=== PATIENT | male | born 1985 | race African-American/Black ===

== ENCOUNTER 2017-03-28 09:32 | Inpatient (IN) ==
[2017-03-28] MEDS ORDERED: GLUCAGON 1 MG VIAL IM PRN ×2 (11:13→13:28)
[2017-03-28] MEDS ORDERED: DEXTROSE 50% 25 GM/50 ML VIAL IV PRN ×2 (11:13→13:28)
[2017-03-28] MEDS ORDERED: cloNIDine 0.1 MG TABLET PO ONE (12:58)
[2017-03-28] MEDS ORDERED: CARVEDILOL 6.25 MG TABLET PO SCH (13:00)
[2017-03-28] MEDS ORDERED: IRBESARTAN 150 MG TABLET PO ONE (13:15)
[2017-03-28] MEDS ORDERED: LACTULOSE 20 GM/30 ML UDCUP PO PRN (13:19)
[2017-03-28] MEDS ORDERED: ACETAMINOPHEN 325 MG TABLET PO PRN (13:19)
[2017-03-28] MEDS ORDERED: ONDANSETRON 4 MG/2 ML VIAL IV PRN (13:19)
[2017-03-28] MEDS ORDERED: diphenhydrAMINE CAP 25 MG CAPSULE PO PRN (13:19)
[2017-03-28] MEDS ORDERED: PROMETHAZINE 25 MG TABLET PO PRN (13:19)
[2017-03-28] MEDS ORDERED: BISACODYL 5 MG TABLET PO PRN (13:19)
[2017-03-28] MEDS ORDERED: ZALEPLON 5 MG CAPSULE PO PRN (13:19)
[2017-03-28] MEDS ORDERED: DOCUSATE SODIUM 100 MG CAPSULE PO PRN (13:19)
[2017-03-28] MEDS: CARVEDILOL 6.25 MG TABLET PO SCH ×2 (14:22→21:05)
[2017-03-28] MEDS: hydrALAZINE 20 MG/1 ML VIAL IV PRN (14:42)
--- NOTE | 2017-03-28 15:02 | Nephrology History & Physical ---
History of Present Illness Chief complaint: Severe hypertension associated with headache and nausea History of present illness: Mr. Stratton is a 31 year old male who was seen by me during dialysis rounds today in the outpatient setting. The patient at that time complained of headache and nausea. He was noted to have a systolic blood pressure of around 220. Patient states his blood pressures been in the 200s for the past couple of weeks. It is been as high despite increases in his blood pressure pills the past few weeks. He currently is taking amlodipine 10 mg a day and irbesartan 150 mg daily. The patient states he has been having headaches on a regular basis and awoke with one this morning as well. His headache worsened while on dialysis. His blood pressure has remained up despite lowering his dry weight past few months on dialysis. The patient was also recently diagnosed with pancreatitis a few months ago and he states he has been having some occasional abdominal pain with eating. Patient denies any changes in his urinary habits. That is the patient states he has not made any urine in over a year or more since being on dialysis. The patient denies stopping his dialysis treatments prior to their usual scheduled time. Patient denies any chest pain or shortness of breath. He denies noncompliance with his antihypertensive medication. ROS: Head -positive headaches ENT - denies sore throat Lymphatics - denies lymphadenopathy Hematology - denies bleeding problems Heart - denies chest pain Lungs - denies shortness of breath Abdomen -positive abdominal pain Musculoskeletal -positive arthritis Skin - denies rash Neurology - denies stroke General - denies fever PE: General: in no acute distress Eyes: Pupils are round and reactive, conjunctivae are clear ENT: Nose is clear, O/P is benign Neck: Supple, no thyromegaly Lymphatics: No cervical, supraclavicular or axillary adenopathy Heart: Regular rate and rhythm, no edema Lungs: Clear to auscultation anteriorly, chest expansion symmetric Abdomen: Soft, normoactive bowel sounds, no hepatomegaly Musculoskeletal: No joint erythema or effusions or joint asymmetry Skin: Normal turgor, normal hydration, no rash Neuro/Psych: Alert and cooperative with fair insight Home Medications Medication Instructions Recorded Confirmed Type Insulin Glargine,Hum.rec.anlog 25 unit SUBCUT BEDTIME 12/23/16 03/28/17 History [Lisa Benitez] Calcium Acetate [Phoslo] 2,668 mg PO TID W/MEALS 12/24/16 03/28/17 History HYDROcodone/ACETAMIN 5-325 [[place] 1 tablet PO Q4H PRN #30 tablet 12/25/16 Rx 5-325] Irbesartan [Avapro] 75 mg PO DAILY 03/28/17 03/28/17 History Ondansetron Tab [Zofran Tab] 4 mg PO Q6HR PRN 03/28/17 03/28/17 History amLODIPine [Norvasc] 10 mg PO DAILY 03/28/17 03/28/17 History Allergies Allergy/AdvReac Type Severity Reaction Status Date / Time No Known Allergies Allergy Verified 08/01/15 20:44 Medical,Surgical,& Family Hx - Medical History Cardio: History of: Hypertension (started meds 2 weeks ago) Neurology: No history of: Seizures HEENT: History of: Eye Problem (GLASSES) Endocrine: History of: Diabetes Mellitus (IDDM) (LANTUS AT HS) Respiratory: History of: Bronchitis (OCCASSIONALLY ACUTE) Renal: History of: Dialysis (MWF), Renal Failure Gastrointestinal: History of: GERD Musculoskeletal: History of: Musculoskeletal Problems (broken leg as a child) Hematology: History of: Anemia - Surgical History Cardiac Surgeries: Sugical HX of: Vascular Access Devices (left arm fistula) HEENT Surgeries: Surgical HX of: Thyroid Surgery (PARATHYROID 02/04/15) Abdominal Surgeries: Surgical HX of: Abdominal Surgery, Hernia Repair ( A CHILD) Orthopedic Surgeries: Surgical HX of;: Orthopedic Surgery (multiple diabetic toe removal) - Family History Family History: Reports;: Family Diabetes (MOM), Family Hypertension (father), Family Stroke (grandmother) - Social History Smoking Status: Former smoker (He quit about 6 months ago) Frequency of Alcohol Use: None Type of Drug Use: Marijuana Exam - Nephrology - Vital Signs Vital signs: Vital Signs Temp Pulse Resp BP Pulse Ox 03/28/17 10:50 98.8 F 93 H 19 204/107 100 Assessment and Plan (1) Severe hypertension Status: Acute Assessment and plan: This patient prior to a few months ago was not requiring any antihypertensives, his blood pressure was controlled with dialysis. In the past few months the patient has developed quite severe hypertension which is proven refractory to his current medications. The patient was admitted due to a refractory headache associated with nausea and the severity of his hypertension with a systolic greater than 220 for the past couple of weeks. I am going to start him on a beta-chino and increase his irbesartan will use clonidine and hydralazine as needed for further control of his blood pressure. I will also continue his amlodipine 10 mg daily. If this fails to break his hypertensive cycle we may need to admit him to the ICU for a nicardipine infusion. Current Visit: Yes (2) Hyperparathyroidism due to renal insufficiency Problem details: Status post parathyroidectomy today. One very large gland removed at surgery. We will follow serial calciums and replace with calcium and vitamin D as necessary Status: Acute Assessment and plan: We will continue his phosphate binder Current Visit: No (3) Pancreatitis Status: Acute Assessment and plan: Patient has been having some mild abdominal pain when he eats, will check his amylase and lipase on dialysis, his development of worsened hypertension seems to coincide with this disorder. Current Visit: No (4) ESRD (end stage renal disease) on dialysis Problem details: We will plan to continue his dialysis tomorrow and while he is hospitalized Status: Chronic Assessment and plan: We will continue his HD support on a Sunday basis while here Current Visit: No (5) IDDM (insulin dependent diabetes mellitus) Status: Chronic Assessment and plan: We will continue his outpatient regimen of hypoglycemic therapy and monitor with a soft sliding scale Current Visit: No
[2017-03-28] MEDS: INSULIN REGULAR 100 UNIT/ML SUBCUT SCH ×2 (16:53→21:06)
[2017-03-28] MEDS: CALCIUM ACETATE 667 MG CAPSULE PO SCH (16:57)
[2017-03-28] MEDS: cloNIDine 0.1 MG TABLET PO PRN (16:57)
[2017-03-28] MEDS: INSULIN GLARGINE 100 UNIT/ML SUBCUT SCH (21:07)
[2017-03-29] MEDS: cloNIDine 0.1 MG TABLET PO PRN (03:57)
[2017-03-29] MEDS: hydrALAZINE 20 MG/1 ML VIAL IV PRN ×3 (06:26→20:41)
[2017-03-29] MEDS ORDERED: IRBESARTAN 150 MG TABLET PO SCH (09:00)
[2017-03-29] MEDS: INSULIN REGULAR 100 UNIT/ML SUBCUT SCH ×4 (09:03→21:20)
[2017-03-29] MEDS: amLODIPine 10 MG TABLET PO SCH (09:13)
[2017-03-29] MEDS: PANTOPRAZOLE 40 MG TABLET PO SCH (09:14)
[2017-03-29] MEDS: IRBESARTAN 150 MG TABLET PO SCH ×2 (09:14→20:41)
[2017-03-29] MEDS: MINOXIDIL 2.5 MG TABLET PO SCH (09:14)
[2017-03-29] MEDS: CALCIUM ACETATE 667 MG CAPSULE PO SCH ×3 (09:14→18:33)
[2017-03-29] MEDS: CARVEDILOL 6.25 MG TABLET PO SCH ×2 (09:15→20:41)
--- NOTE | 2017-03-29 11:47 | Nephrology Progress Note ---
Nephrology - PN: Subj Interval history: Patient states he has had some relief of his headache with Tylenol. Review of systems GI he had some nausea this morning. Physical exam general the patient is in no acute distress Assessment/plan 1. Severe hypertension-patient's latest blood pressure was around 190/96, I have added minoxidil to his medical regimen, will recheck his blood pressure this afternoon and I may re-dose him with minoxidil again as well as giving him a dose of irbesartan. 2. End-stage renal disease-patient's for dialysis tomorrow 3. Diabetes mellitus this is controlled Exam (PN)-Nephrology - Vital Signs Vital signs: Period Temp Pulse Resp BP Sys/Leahy Pulse Ox Last 24 Hr 97.7 F-98.4 F 79-92 18-20 177-209/90-114 98-100 Assessment and Plan (1) Severe hypertension Status: Acute Assessment and plan: This patient prior to a few months ago was not requiring any antihypertensives, his blood pressure was controlled with dialysis. In the past few months the patient has developed quite severe hypertension which is proven refractory to his current medications. The patient was admitted due to a refractory headache associated with nausea and the severity of his hypertension with a systolic greater than 220 for the past couple of weeks. I am going to start him on a beta-chino and increase his irbesartan will use clonidine and hydralazine as needed for further control of his blood pressure. I will also continue his amlodipine 10 mg daily. If this fails to break his hypertensive cycle we may need to admit him to the ICU for a nicardipine infusion. Current Visit: Yes (2) Hyperparathyroidism due to renal insufficiency Problem details: Status post parathyroidectomy today. One very large gland removed at surgery. We will follow serial calciums and replace with calcium and vitamin D as necessary Status: Acute Assessment and plan: We will continue his phosphate binder Current Visit: No (3) Pancreatitis Status: Acute Assessment and plan: Patient has been having some mild abdominal pain when he eats, will check his amylase and lipase on dialysis, his development of worsened hypertension seems to coincide with this disorder. Current Visit: No (4) ESRD (end stage renal disease) on dialysis Problem details: We will plan to continue his dialysis tomorrow and while he is hospitalized Status: Chronic Assessment and plan: We will continue his HD support on a Sunday basis while here Current Visit: No (5) IDDM (insulin dependent diabetes mellitus) Status: Chronic Assessment and plan: We will continue his outpatient regimen of hypoglycemic therapy and monitor with a soft sliding scale Current Visit: No
[2017-03-29] MEDS: INSULIN GLARGINE 100 UNIT/ML SUBCUT SCH (21:20)
[2017-03-30] MEDS: CALCIUM ACETATE 667 MG CAPSULE PO SCH ×2 (08:09→14:02)
[2017-03-30] MEDS: MINOXIDIL 2.5 MG TABLET PO SCH (08:09)
[2017-03-30] MEDS: amLODIPine 10 MG TABLET PO SCH (08:10)
[2017-03-30] MEDS: IRBESARTAN 150 MG TABLET PO SCH (08:10)
[2017-03-30] MEDS: CARVEDILOL 6.25 MG TABLET PO SCH (08:10)
[2017-03-30] MEDS: PANTOPRAZOLE 40 MG TABLET PO SCH (08:10)
[2017-03-30] MEDS: INSULIN REGULAR 100 UNIT/ML SUBCUT SCH ×2 (08:14→13:48)
--- NOTE | 2017-03-30 09:03 | Dialysis Note ---
Dialysis Note - Dialysis Note Mr. Sanchez is seen during his hemodialysis. Blood pressure earlier this morning was better but today on dialysis he has a pressure of 220/120. He does seem to have some periorbital edema. Efforts are ongoing to improve blood pressure control. We are removing 3500 cc of fluid today with dialysis.
[2017-03-30] MEDS ORDERED: SKIN HEALING OINT (AQUAPHOR) 50 GM TUBE TOP PRN (11:47)
--- NOTE | 2017-03-30 11:57 | Discharge Summary ---
Hospital Course - Hospital Course Hospital Course: Patient was admitted for severe hypertension with a systolic blood pressure greater than 200 the past couple of weeks on dialysis. On admission the patient was started on Coreg 6.25 mg p.o. twice daily and his irbesartan was increased to 300 mg daily. Despite this patient's blood pressure continued in the 200 we subsequently added 5 mg of minoxidil daily to his regimen with this the patient's systolic blood pressure showed some improvement with it coming down to the 158-190 range although when he was put on dialysis today his blood pressure was back up to 200. The patient's headache has improved since he has been here. At this time I think we are on the right track with regards to his blood pressure medications and will discharge him home on a increased dose of minoxidil 10 mg daily and increase his Coreg to 12.5 mg daily and continue the irbesartan at 300 mg daily as well as the Norvasc 10 mg daily. Diagnosis - Discharge Diagnosis (1) Severe hypertension Status: Acute (2) Hyperparathyroidism due to renal insufficiency Status: Acute (3) Pancreatitis Status: Acute (4) ESRD (end stage renal disease) on dialysis Status: Chronic (5) IDDM (insulin dependent diabetes mellitus) Status: Chronic Discharge Plan - Discharge Data Disposition: Disch To Home/Self Care Condition at Discharge: Stable Discharge Diet: advance to your usual diet - Discharge Medications New Carvedilol 12.5 mg PO BID #180 tablet Irbesartan 300 mg PO DAILY #90 tablet Minoxidil 10 mg PO DAILY #90 tablet Promethazine Tab [Phenergan Tab] 25 mg PO Q6H PRN #30 tablet PRN Reason: Nausea Continue amLODIPine [Norvasc] 10 mg PO DAILY Ondansetron Tab [Zofran Tab] 4 mg PO Q6HR PRN PRN Reason: Nausea Insulin Glargine,Hum.rec.anlog [Tosita Benitez] 25 unit SUBCUT BEDTIME Calcium Acetate [Phoslo] 2,668 mg PO TID W/MEALS HYDROcodone/ACETAMIN 5-325 [[place] 5-325] 1 tablet PO Q4H PRN #30 tablet PRN Reason: Pain Mild (1-3) Discontinued Irbesartan [Avapro] 75 mg PO DAILY - Follow Up or Referral - Forms/Instructions Exam - Constitutional Vitals: Period Temp Pulse Resp BP Sys/Leahy Pulse Ox Last 24 Hr 98.2 F-98.9 F 86-95 18-20 157-193/83-104 92-100 Discharge Results Labs on day of discharge: Labs from last 24 hours 03/30/17 03/29/17 03/29/17 07:21 20:16 17:10 POC Glucose 103 165 H 128 H DS: Provider Date of admission: 03/28/17 10:22 Primary care physician: . No PCP Attending physician on admission: Ryley Bassett MD Consults: 03/28/17 11:07 Consult to Dietitian [CONS] Routine Reason for Dietitian: Other Consult Comment: wt loss Discharging clinician: Ryley Bassett MD
[2017-03-30] MEDS: cloNIDine 0.1 MG TABLET PO PRN (12:43)
[2017-03-30 14:46] VITALS: BP 163/96
--- NOTE | 2017-04-09 08:10 | Physician Query Form ---
CLICK EDIT DOCUMENT TO SELECT QUERY ANSWER --> OK --> SIGN Samantha Cobb RN Clinical Deckhand Maintenance W) [phone] (f) [phone] [email or web address]: Make your selection(s) from the choices in EACH section by typing an "x" and enter comments in the comment section. Please use your independent medical judgment in providing your response. This request does not imply that any particular answer is desired or expected. CLINCAL INDICATORS: (Providers should not edit this section) Based on documentation of "Severe hypertension associated with headache and nausea" "Was noted to have a systolic blood pressure of around 220" Blood pressure of 204/107. Treated with IV Apresoline. Note: Hypertensive crises can present as hypertensive urgency or hypertensive emergency. Clarify which, if any of the following, is a more accurate diagnosis reflecting the type and acuity of the documented hypertension: TYPE: ( ) Hypertensive Urgency ( ) Hypertensive Emergency ( ) Uncontrolled chronic hypertension at baseline ( ) Other, please specify: ( ) Clinically unable to determine COMMENTS: Criteria Source - Up to Date (This topic last updated: Dec 22, 2015) HYPERTENSIVE URGENCY: Severe hypertension (usually a diastolic blood pressure above 120 mmHg) in asymptomatic patients is referred to as hypertensive urgency. There is no proven benefit from rapid reduction in blood pressure in asymptomatic patients who have no evidence of acute end-organ damage and are at little short-term risk. HYPERTENSIVE EMERGENCY: Severe hypertension (usually a diastolic blood pressure above 120 mmHg) with evidence of acute end-organ damage is defined as a hypertensive emergency. A hypertensive emergency can be life threatening and requires immediate treatment, usually with parenteral medications in a monitored setting. PLEASE ALSO DOCUMENT RESPONSE IN PROGRESS NOTES AND/OR DISCHARGE SUMMARY Use of terms such as suspected, likely, or probable (associated with a specific diagnosis that is being evaluated, monitored, or treated as if it exists) are acceptable and can be restated in the discharge summary if not ruled out. MTDD
--- NOTE | 2017-04-16 08:50 | Physician Query Form ---
CLICK EDIT DOCUMENT TO SELECT QUERY ANSWER --> OK --> SIGN Samantha Cobb RN Clinical Mechanical Specialist W) [phone] (f) [phone] [email or web address]: Make your selection(s) from the choices in EACH section by typing an "x" and enter comments in the comment section. Please use your independent medical judgment in providing your response. This request does not imply that any particular answer is desired or expected. CLINCAL INDICATORS: (Providers should not edit this section) Based on documentation of "Severe hypertension associated with headache and nausea" "Was noted to have a systolic blood pressure of around 220" Blood pressure of 204/107. Treated with IV Apresoline. Note: Hypertensive crises can present as hypertensive urgency or hypertensive emergency. Clarify which, if any of the following, is a more accurate diagnosis reflecting the type and acuity of the documented hypertension: TYPE: ( ) Hypertensive Urgency (x ) Hypertensive Emergency ( ) Uncontrolled chronic hypertension at baseline ( ) Other, please specify: ( ) Clinically unable to determine COMMENTS: Criteria Source - Up to Date (This topic last updated: Dec 22, 2015) HYPERTENSIVE URGENCY: Severe hypertension (usually a diastolic blood pressure above 120 mmHg) in asymptomatic patients is referred to as hypertensive urgency. There is no proven benefit from rapid reduction in blood pressure in asymptomatic patients who have no evidence of acute end-organ damage and are at little short-term risk. HYPERTENSIVE EMERGENCY: Severe hypertension (usually a diastolic blood pressure above 120 mmHg) with evidence of acute end-organ damage is defined as a hypertensive emergency. A hypertensive emergency can be life threatening and requires immediate treatment, usually with parenteral medications in a monitored setting. PLEASE ALSO DOCUMENT RESPONSE IN PROGRESS NOTES AND/OR DISCHARGE SUMMARY Use of terms such as suspected, likely, or probable (associated with a specific diagnosis that is being evaluated, monitored, or treated as if it exists) are acceptable and can be restated in the discharge summary if not ruled out. MTDD
== END 2017-03-30 15:05 | disposition home or self-care (01) | DRG 304 ==
LOC: N.5E 10:22
PROVIDERS: ADMIT Internal Medicine Nephrology; ATTEND Internal Medicine Nephrology

== ENCOUNTER 2019-03-30 10:43 | Inpatient (IN) ==
[2019-03-30] MEDS ORDERED: GLUCAGON 1 MG VIAL IM PRN (12:21)
[2019-03-30] MEDS ORDERED: DEXTROSE 50% 25 GM/50 ML VIAL IV PRN (12:21)
[2019-03-30 13:13] LABS: Basophils % 0.1 % (0.0-0.8); Eosinophils # 0.2 10*3/uL (0.0-0.87); Eosinophils % 1.7 % (0.00-10.9); Hematocrit 32.3 VOL% (42.0-52.0); Immature Granulocytes % 0.3 %; Immature Granulocytes Absolute 0.04 #; Lymphocytes # 1.6 10*3/uL (1.4-4.0); Lymphocytes % 11.4 % (21.2-54.2); Mean Corpuscular HGB Conc 34.1 GM/DL (32-36); Mean Corpuscular Volume 90.2 FL (87-102); Monocytes % 10.6 % (1.7-12.7); Neutrophils % 75.9 % (38.7-73.9); Platelet Count 228 T/CUMM (130-400); Red Blood Count 3.58 MC/CUMM (3.8-5.5); Red Cell Distribution Width 14.4 % (9.3-17.3)
[2019-03-30 13:52] LABS: Albumin 3.3 G/DL (3.4-5.0); Bilirubin,Total 0.4 MG/DL (0.2-1.0); Total Protein 8.8 G/DL (6.4-8.3)
[2019-03-30] MEDS: PIPERACILLIN/TAZOBACTAM 3,375 MG in SODIUM CHLORIDE 0.9% 100 ML IV SCH ×2 (14:40→21:13)
[2019-03-30] MEDS: INSULIN LISPRO 100 UNIT/ML SUBCUT SCH ×2 (16:40→21:21)
[2019-03-30] MEDS ORDERED: ACETAMINOPHEN 325 MG TABLET PO ONE (20:33)
[2019-03-31 04:19] LABS: Basophils % 0.2 % (0.0-0.8); Eosinophils # 0.4 10*3/uL (0.0-0.87); Hematocrit 29.3 VOL% (42.0-52.0); Immature Granulocytes % 0.2 %; Immature Granulocytes Absolute 0.03 #; Lymphocytes % 16.6 % (21.2-54.2); Mean Corpuscular HGB Conc 34.1 GM/DL (32-36); Mean Corpuscular Volume 89.3 FL (87-102); Mean Platelet Volume 12.8 FL (9.6-12.0); Monocytes % 11.5 % (1.7-12.7); Neutrophils % 68.5 % (38.7-73.9); Platelet Count 215 T/CUMM (130-400); Red Blood Count 3.28 MC/CUMM (3.8-5.5); Red Cell Distribution Width 14.3 % (9.3-17.3); White Blood Count 12.3 T/CUMM (4-12)
[2019-03-31 04:49] LABS: Calcium 8.5 MG/DL (8.5-10.1); Osmolality,Calculated 292.1 MOS/KG (273-304); Thyroid Stimulating Hormone 0.943 uIU/ml (0.358-3.74)
[2019-03-31] MEDS: PIPERACILLIN/TAZOBACTAM 3,375 MG in SODIUM CHLORIDE 0.9% 100 ML IV SCH ×3 (06:22→21:06)
[2019-03-31] MEDS: INSULIN LISPRO 100 UNIT/ML SUBCUT SCH ×4 (09:28→21:06)
[2019-03-31] MEDS: PANTOPRAZOLE 40 MG TABLET PO SCH (09:28)
[2019-03-31] MEDS ORDERED: EPOETIN ALFA 10,000 UNIT/1 ML VIAL IV PRN (12:06)
[2019-04-01 04:48] LABS: Basophils % 0.4 % (0.0-0.8); Eosinophils # 0.4 10*3/uL (0.0-0.87); Eosinophils % 4.8 % (0.00-10.9); Hemoglobin 9.5 GM/DL (14.0-18.0); Immature Granulocytes % 0.4 %; Immature Granulocytes Absolute 0.04 #; Lymphocytes # 1.6 10*3/uL (1.4-4.0); Lymphocytes % 17.2 % (21.2-54.2); Mean Corpuscular HGB Conc 32.8 GM/DL (32-36); Mean Corpuscular Volume 90.6 FL (87-102); Mean Platelet Volume 12.4 FL (9.6-12.0); Monocytes % 11.6 % (1.7-12.7); Neutrophils % 65.6 % (38.7-73.9); Platelet Count 212 T/CUMM (130-400); Red Cell Distribution Width 14.1 % (9.3-17.3); White Blood Count 9.1 T/CUMM (4-12)
[2019-04-01 05:15] LABS: Calcium 8.5 MG/DL (8.5-10.1); Osmolality,Calculated 286.8 MOS/KG (273-304)
[2019-04-01] MEDS: PIPERACILLIN/TAZOBACTAM 3,375 MG in SODIUM CHLORIDE 0.9% 100 ML IV SCH ×3 (05:38→21:26)
[2019-04-01] MEDS ORDERED: FAMOTIDINE 20 MG TABLET PO ONE (06:00)
[2019-04-01] MEDS: INSULIN LISPRO 100 UNIT/ML SUBCUT SCH ×4 (08:12→19:24)
[2019-04-01] MEDS ORDERED: LACTATED RINGERS 1,000 ML IV SCH (10:30)
[2019-04-01] MEDS: PANTOPRAZOLE 40 MG TABLET PO SCH (10:34)
[2019-04-01] MEDS ORDERED: LIDOCAINE 1% 5 ML VIAL ONE (11:42)
[2019-04-01] MEDS ORDERED: LIDOCAINE 1% 20 ML VIAL ONE (11:42)
[2019-04-01] MEDS ORDERED: SODIUM CHLORIDE 0.9% 250 ML IV ONE (12:15)
[2019-04-01] MEDS ORDERED: fentaNYL 100 MCG/2 ML VIAL ONE (12:15)
[2019-04-01] MEDS ORDERED: LABETALOL 100 MG/20 ML VIAL IV ONE (12:15)
[2019-04-01] MEDS ORDERED: MIDAZOLAM 2 MG/2 ML VIAL ONE (12:15)
[2019-04-01] MEDS: MORPHINE 4 MG/1 ML VIAL IV PRN (13:44)
[2019-04-01] MEDS: ONDANSETRON 4 MG/2 ML VIAL IV PRN (15:59)
[2019-04-02 05:52] LABS: Basophils # 0.1 10*3/uL (0.0-0.2); Basophils % 0.6 % (0.0-0.8); Eosinophils # 0.6 10*3/uL (0.0-0.87); Eosinophils % 8.3 % (0.00-10.9); Hematocrit 30.3 VOL% (42.0-52.0); Hemoglobin 10.1 GM/DL (14.0-18.0); Immature Granulocytes % 0.3 %; Immature Granulocytes Absolute 0.02 #; Lymphocytes # 1.7 10*3/uL (1.4-4.0); Mean Corpuscular HGB Conc 33.3 GM/DL (32-36); Mean Corpuscular Volume 89.9 FL (87-102); Mean Platelet Volume 12.4 FL (9.6-12.0); Monocytes % 10.9 % (1.7-12.7); Neutrophils % 57.9 % (38.7-73.9); Platelet Count 248 T/CUMM (130-400); Red Blood Count 3.37 MC/CUMM (3.8-5.5); Red Cell Distribution Width 14.4 % (9.3-17.3); White Blood Count 7.7 T/CUMM (4-12)
[2019-04-02] MEDS: PIPERACILLIN/TAZOBACTAM 3,375 MG in SODIUM CHLORIDE 0.9% 100 ML IV SCH ×2 (05:57→14:51)
[2019-04-02] MEDS: MORPHINE 4 MG/1 ML VIAL IV PRN (06:05)
[2019-04-02 06:14] LABS: Calcium 8.6 MG/DL (8.5-10.1); Osmolality,Calculated 290.7 MOS/KG (273-304)
[2019-04-02 07:45] VITALS: BP 180/92
[2019-04-02] MEDS: INSULIN LISPRO 100 UNIT/ML SUBCUT SCH ×3 (08:14→17:19)
[2019-04-02] MEDS: PANTOPRAZOLE 40 MG TABLET PO SCH (12:31)
[2019-04-02] MEDS: ONDANSETRON 4 MG/2 ML VIAL IV PRN (12:54)
[2019-04-02] MEDS ORDERED: SODIUM HYPOCHLORITE 0.25% IRRIG 473 ML BOTTLE TOP SCH (14:30)
== END 2019-04-02 18:10 | disposition home or self-care (01) | DRG 629 ==
LOC: N.ED 10:43 → N.EDINP 12:21 → N.3E 16:00
PROVIDERS: ADMIT Internal Medicine; ATTEND Internal Medicine

== ENCOUNTER 2022-05-08 18:36 | Inpatient (IN) ==
[2022-05-08] MEDS ORDERED: VANCOMYCIN INJ 1,000 MG in SODIUM CHLORIDE 0.9% 250 ML IV STA (19:37)
[2022-05-08 20:13] LABS: Basophils % 0.6 % (0.0-0.8); Eosinophils # 0.4 10*3/uL (0.0-0.87); Eosinophils % 8.4 % (0.00-10.9); Hematocrit 32.3 VOL% (42.0-52.0); Hemoglobin 10.6 GM/DL (14.0-18.0); Immature Granulocytes % 0.2 %; Immature Granulocytes Absolute 0.01 #; Lymphocytes % 22.4 % (21.2-54.2); Mean Corpuscular HGB Conc 32.8 GM/DL (32-36); Mean Corpuscular Volume 86.6 FL (87-102); Mean Platelet Volume 12.8 FL (9.6-12.0); Monocytes # 0.4 10*3/uL (0.11-0.8); Monocytes % 9.2 % (1.7-12.7); Neutrophils % 59.2 % (38.7-73.9); Platelet Count 173 T/CUMM (130-400); Red Blood Count 3.73 MC/CUMM (3.8-5.5); Red Cell Distribution Width 16.4 % (9.3-17.3); White Blood Count 4.7 T/CUMM (4-12)
[2022-05-08 20:31] LABS: Alanine Aminotransferase 24 U/L (16-61); Albumin 2.9 G/DL (3.4-5.0); Alkaline Phosphatase 129 U/L (45-117); Aspartate Amino Transferase 17 U/L (0-37); Bilirubin,Total < 0.39 MG/DL (0.20-1.00); Blood Urea Nitrogen 23 MG/DL (7-18); Calcium 9.7 MG/DL (8.5-10.1); Carbon Dioxide 29 MMOL/L (21-32); Chloride 100 MMOL/L (98-107); Glucose 368 MG/DL (74-106); Potassium 4.3 MMOL/L (3.5-5.1); Sodium 136 MMOL/L (136-145); Total Protein 7.1 G/DL (6.4-8.2)
[2022-05-08] MEDS ORDERED: MORPHINE 2 MG/1 ML SYRINGE IV PRN (21:05)
[2022-05-08] MEDS ORDERED: hydrALAZINE 20 MG/1 ML VIAL IV PRN (21:05)
[2022-05-08] MEDS ORDERED: guaiFENesin/DM ER 600-30 MG TABLET PO PRN (21:05)
[2022-05-08] MEDS ORDERED: diphenhydrAMINE CAP 25 MG CAPSULE PO PRN (21:05)
[2022-05-08] MEDS ORDERED: ACETAMINOPHEN 325 MG TABLET PO PRN (21:05)
[2022-05-08] MEDS ORDERED: NICOTINE 21 MG/24 HR PATCH TRANSDERM PRN (21:05)
[2022-05-08] MEDS ORDERED: ZALEPLON 5 MG CAPSULE PO PRN (21:05)
[2022-05-08] MEDS ORDERED: DEXTROSE 50% 25 GM/50 ML VIAL IV PRN (21:05)
[2022-05-08] MEDS ORDERED: GLUCAGON 1 MG VIAL IM PRN ×2 (21:05)
[2022-05-08] MEDS ORDERED: ONDANSETRON 4 MG/2 ML VIAL IV PRN (21:05)
[2022-05-08] MEDS ORDERED: DEXTROSE 10% 250 ML BAG IV PRN (21:05)
[2022-05-08] MEDS ORDERED: VANCOMYCIN INJ 1,000 MG in SODIUM CHLORIDE 0.9% 250 ML IV ONE (23:30)
[2022-05-08] MEDS ORDERED: VANCOMYCIN INJ 750 MG in SODIUM CHLORIDE 0.9% 250 ML IV PRN (23:54)
[2022-05-09 05:41] LABS: Basophils % 0.8 % (0.0-0.8); Eosinophils # 0.5 10*3/uL (0.0-0.87); Eosinophils % 9.9 % (0.00-10.9); Hematocrit 33.3 VOL% (42.0-52.0); Hemoglobin 10.9 GM/DL (14.0-18.0); Immature Granulocytes % 0.4 %; Immature Granulocytes Absolute 0.02 #; Lymphocytes # 1.3 10*3/uL (1.4-4.0); Mean Corpuscular HGB Conc 32.7 GM/DL (32-36); Mean Corpuscular Volume 86.7 FL (87-102); Mean Platelet Volume 12.5 FL (9.6-12.0); Monocytes # 0.6 10*3/uL (0.11-0.8); Monocytes % 11.5 % (1.7-12.7); Neutrophils % 51.4 % (38.7-73.9); Platelet Count 180 T/CUMM (130-400); Red Blood Count 3.84 MC/CUMM (3.8-5.5); Red Cell Distribution Width 16.2 % (9.3-17.3)
[2022-05-09 05:58] LABS: Calcium 9.4 MG/DL (8.5-10.1); Osmolality,Calculated 285.4 MOS/KG (273-304); Potassium 3.9 MMOL/L (3.5-5.1)
[2022-05-09] MEDS: amLODIPine 10 MG TABLET PO SCH (08:56)
[2022-05-09] MEDS: carvediloL 12.5 MG TABLET PO SCH ×2 (08:56→20:46)
[2022-05-09] MEDS: PANTOPRAZOLE 40 MG TABLET PO SCH (08:56)
[2022-05-09] MEDS: LOSARTAN 50 MG TABLET PO SCH (08:56)
[2022-05-09] MEDS: minoxidiL 2.5 MG TABLET PO SCH (08:56)
[2022-05-09] MEDS: HEPARIN 5,000 UNIT/1 ML VIAL SUBCUT SCH ×2 (09:14→20:44)
[2022-05-09] MEDS: BISACODYL 5 MG TABLET PO SCH (09:14)
[2022-05-09] MEDS: INSULIN LISPRO 100 UNIT/ML SUBCUT SCH ×4 (09:14→20:41)
[2022-05-09] MEDS ORDERED: GENTAMICIN INJ 160 MG in SODIUM CHLORIDE 0.9% 100 ML IV PRN (09:38)
[2022-05-09] MEDS ORDERED: GENTAMICIN INJ 160 MG in SODIUM CHLORIDE 0.9% 100 ML IV ONE (12:00)
[2022-05-09] MEDS: AMPICILLIN INJ 2,000 MG in SODIUM CHLORIDE 0.9% 100 ML IV SCH (15:26)
[2022-05-10] MEDS: AMPICILLIN INJ 2,000 MG in SODIUM CHLORIDE 0.9% 100 ML IV SCH ×3 (00:29→20:45)
[2022-05-10 06:04] LABS: Basophils % 0.9 % (0.0-0.8); Eosinophils # 0.5 10*3/uL (0.0-0.87); Eosinophils % 12.1 % (0.00-10.9); Hematocrit 33.6 VOL% (42.0-52.0); Immature Granulocytes % 0.4 %; Immature Granulocytes Absolute 0.02 #; Lymphocytes # 1.4 10*3/uL (1.4-4.0); Lymphocytes % 31.4 % (21.2-54.2); Mean Corpuscular HGB Conc 32.7 GM/DL (32-36); Mean Corpuscular Volume 86.6 FL (87-102); Mean Platelet Volume 12.2 FL (9.6-12.0); Monocytes # 0.5 10*3/uL (0.11-0.8); Monocytes % 11.4 % (1.7-12.7); Neutrophils % 43.8 % (38.7-73.9); Platelet Count 189 T/CUMM (130-400); Red Blood Count 3.88 MC/CUMM (3.8-5.5); Red Cell Distribution Width 16.5 % (9.3-17.3); White Blood Count 4.5 T/CUMM (4-12)
[2022-05-10 06:18] LABS: Calcium 9.5 MG/DL (8.5-10.1); Osmolality,Calculated 284.7 MOS/KG (273-304); Potassium 4.7 MMOL/L (3.5-5.1)
[2022-05-10 06:29] LABS: Eosinophils 13 % (0-10); Hypochromia Slight; Lymphocytes 29 % (20-55); Microcytosis Slight; Platelet Estimate Adequate; Total Cells Counted 100
[2022-05-10] MEDS: INSULIN LISPRO 100 UNIT/ML SUBCUT SCH ×4 (08:00→20:47)
[2022-05-10] MEDS: carvediloL 12.5 MG TABLET PO SCH (10:30)
[2022-05-10] MEDS: minoxidiL 2.5 MG TABLET PO SCH (10:30)
[2022-05-10] MEDS: LOSARTAN 50 MG TABLET PO SCH (10:30)
[2022-05-10] MEDS: PANTOPRAZOLE 40 MG TABLET PO SCH (10:30)
[2022-05-10] MEDS: amLODIPine 10 MG TABLET PO SCH (10:30)
[2022-05-10] MEDS: HEPARIN 5,000 UNIT/1 ML VIAL SUBCUT SCH ×2 (10:52→20:47)
[2022-05-10] MEDS: BISACODYL 5 MG TABLET PO SCH (10:52)
[2022-05-10] MEDS ORDERED: GENTAMICIN INJ 160 MG in SODIUM CHLORIDE 0.9% 100 ML IV ONE (17:00)
[2022-05-10] MEDS: carvediloL 25 MG TABLET PO SCH (17:13)
[2022-05-11 06:23] LABS: Basophils # 0.1 10*3/uL (0.0-0.2); Basophils % 1.1 % (0.0-0.8); Eosinophils # 0.6 10*3/uL (0.0-0.87); Eosinophils % 13.4 % (0.00-10.9); Hematocrit 34.5 VOL% (42.0-52.0); Hemoglobin 11.5 GM/DL (14.0-18.0); Immature Granulocytes % 0.2 %; Immature Granulocytes Absolute 0.01 #; Lymphocytes # 1.5 10*3/uL (1.4-4.0); Lymphocytes % 31.6 % (21.2-54.2); Mean Corpuscular HGB Conc 33.3 GM/DL (32-36); Mean Corpuscular Volume 85.2 FL (87-102); Mean Platelet Volume 12.1 FL (9.6-12.0); Monocytes # 0.6 10*3/uL (0.11-0.8); Monocytes % 11.9 % (1.7-12.7); Neutrophils % 41.8 % (38.7-73.9); Platelet Count 228 T/CUMM (130-400); Red Blood Count 4.05 MC/CUMM (3.8-5.5); Red Cell Distribution Width 16.2 % (9.3-17.3); White Blood Count 4.6 T/CUMM (4-12)
[2022-05-11 06:38] LABS: Calcium 9.9 MG/DL (8.5-10.1); Potassium 4.2 MMOL/L (3.5-5.1)
[2022-05-11 07:03] LABS: Eosinophils 20 % (0-10); Lymphocytes 29 % (20-55); Total Cells Counted 100
[2022-05-11 07:09] LABS: Hypochromia Slight; Microcytosis 1+
[2022-05-11 07:10] LABS: Platelet Estimate Normal
[2022-05-11] MEDS ORDERED: MIDAZOLAM 10 MG/2 ML VIAL ONE ×2 (07:15→08:11)
[2022-05-11] MEDS ORDERED: MEPERIDINE 25 MG/1 ML VIAL ONE (07:15)
[2022-05-11] MEDS: INSULIN LISPRO 100 UNIT/ML SUBCUT SCH ×4 (07:30→20:37)
[2022-05-11] MEDS ORDERED: SODIUM CHLORIDE 0.9% 1,000 ML IV SCH (07:45)
[2022-05-11] MEDS ORDERED: MIDAZOLAM 2 MG/2 ML VIAL IV ONE (07:59)
[2022-05-11] MEDS: AMPICILLIN INJ 2,000 MG in SODIUM CHLORIDE 0.9% 100 ML IV SCH ×2 (10:00→21:30)
[2022-05-11] MEDS: carvediloL 25 MG TABLET PO SCH ×2 (10:01→17:01)
[2022-05-11] MEDS: minoxidiL 2.5 MG TABLET PO SCH (10:01)
[2022-05-11] MEDS: LOSARTAN 50 MG TABLET PO SCH (10:02)
[2022-05-11] MEDS: PANTOPRAZOLE 40 MG TABLET PO SCH (10:02)
[2022-05-11] MEDS: amLODIPine 10 MG TABLET PO SCH (10:02)
[2022-05-11] MEDS: BISACODYL 5 MG TABLET PO SCH (10:29)
[2022-05-11] MEDS: HEPARIN 5,000 UNIT/1 ML VIAL SUBCUT SCH ×2 (10:29→20:36)
[2022-05-12 05:42] LABS: Basophils % 0.8 % (0.0-0.8); Eosinophils # 0.7 10*3/uL (0.0-0.87); Eosinophils % 13.9 % (0.00-10.9); Hematocrit 34.2 VOL% (42.0-52.0); Hemoglobin 11.3 GM/DL (14.0-18.0); Immature Granulocytes % 0.2 %; Immature Granulocytes Absolute 0.01 #; Lymphocytes # 1.6 10*3/uL (1.4-4.0); Lymphocytes % 32.4 % (21.2-54.2); Mean Corpuscular Volume 84.9 FL (87-102); Mean Platelet Volume 11.7 FL (9.6-12.0); Monocytes # 0.6 10*3/uL (0.11-0.8); Monocytes % 12.1 % (1.7-12.7); Neutrophils % 40.6 % (38.7-73.9); Platelet Count 225 T/CUMM (130-400); Red Blood Count 4.03 MC/CUMM (3.8-5.5)
[2022-05-12 05:53] LABS: Calcium 9.2 MG/DL (8.5-10.1); Osmolality,Calculated 289.4 MOS/KG (273-304); Potassium 4.5 MMOL/L (3.5-5.1)
[2022-05-12 06:44] LABS: Anisocytosis 1+; Eosinophils 13 % (0-10); Lymphocytes 29 % (20-55); Platelet Estimate Normal; Total Cells Counted 100
[2022-05-12 06:45] LABS: Macrocytosis Slight
[2022-05-12] MEDS: INSULIN LISPRO 100 UNIT/ML SUBCUT SCH ×4 (09:03→22:32)
[2022-05-12] MEDS: AMPICILLIN INJ 2,000 MG in SODIUM CHLORIDE 0.9% 100 ML IV SCH ×2 (09:04→22:14)
[2022-05-12] MEDS: LOSARTAN 50 MG TABLET PO SCH (09:05)
[2022-05-12] MEDS: amLODIPine 10 MG TABLET PO SCH (09:05)
[2022-05-12] MEDS: minoxidiL 2.5 MG TABLET PO SCH (09:05)
[2022-05-12] MEDS: carvediloL 25 MG TABLET PO SCH ×2 (09:05→17:05)
[2022-05-12] MEDS: PANTOPRAZOLE 40 MG TABLET PO SCH (09:06)
[2022-05-12] MEDS: BISACODYL 5 MG TABLET PO SCH (09:07)
[2022-05-12] MEDS: HEPARIN 5,000 UNIT/1 ML VIAL SUBCUT SCH ×2 (09:07→22:31)
[2022-05-12] MEDS ORDERED: GENTAMICIN INJ 160 MG in SODIUM CHLORIDE 0.9% 100 ML IV ONE (17:00)
[2022-05-13] MEDS: AMPICILLIN INJ 2,000 MG in SODIUM CHLORIDE 0.9% 100 ML IV SCH ×2 (08:23→21:41)
[2022-05-13] MEDS: INSULIN LISPRO 100 UNIT/ML SUBCUT SCH ×4 (08:25→21:42)
[2022-05-13] MEDS: HEPARIN 5,000 UNIT/1 ML VIAL SUBCUT SCH ×2 (08:26→21:42)
[2022-05-13] MEDS: minoxidiL 2.5 MG TABLET PO SCH (08:26)
[2022-05-13] MEDS: PANTOPRAZOLE 40 MG TABLET PO SCH (08:26)
[2022-05-13] MEDS: LOSARTAN 50 MG TABLET PO SCH (08:27)
[2022-05-13] MEDS: BISACODYL 5 MG TABLET PO SCH (08:27)
[2022-05-13] MEDS: amLODIPine 10 MG TABLET PO SCH (08:27)
[2022-05-13] MEDS: carvediloL 25 MG TABLET PO SCH ×2 (08:27→16:07)
[2022-05-14 05:46] LABS: Basophils % 0.9 % (0.0-0.8); Eosinophils # 0.7 10*3/uL (0.0-0.87); Eosinophils % 14.7 % (0.00-10.9); Hematocrit 34.2 VOL% (42.0-52.0); Hemoglobin 11.6 GM/DL (14.0-18.0); Immature Granulocytes % 0.2 %; Immature Granulocytes Absolute 0.01 #; Lymphocytes # 1.6 10*3/uL (1.4-4.0); Lymphocytes % 35.7 % (21.2-54.2); Mean Corpuscular HGB Conc 33.9 GM/DL (32-36); Mean Platelet Volume 10.7 FL (9.6-12.0); Monocytes # 0.5 10*3/uL (0.11-0.8); Monocytes % 10.2 % (1.7-12.7); Neutrophils % 38.3 % (38.7-73.9); Platelet Count 191 T/CUMM (130-400); Red Blood Count 4.07 MC/CUMM (3.8-5.5); Red Cell Distribution Width 15.9 % (9.3-17.3); White Blood Count 4.4 T/CUMM (4-12)
[2022-05-14 06:13] LABS: Calcium 9.2 MG/DL (8.5-10.1); Osmolality,Calculated 288.4 MOS/KG (273-304); Potassium 4.6 MMOL/L (3.5-5.1)
[2022-05-14 06:23] LABS: Eosinophils 11 % (0-10); Lymphocytes 36 % (20-55); Total Cells Counted 100
[2022-05-14 06:24] LABS: Atypical Lymphocytes Few; Platelet Estimate Normal; Reactive Lymphocytes 1+
[2022-05-14 06:25] LABS: Hypochromia 1+
[2022-05-14] MEDS: INSULIN LISPRO 100 UNIT/ML SUBCUT SCH ×4 (08:08→20:49)
[2022-05-14] MEDS: AMPICILLIN INJ 2,000 MG in SODIUM CHLORIDE 0.9% 100 ML IV SCH ×2 (08:10→20:48)
[2022-05-14] MEDS: PANTOPRAZOLE 40 MG TABLET PO SCH (08:11)
[2022-05-14] MEDS: amLODIPine 10 MG TABLET PO SCH (08:11)
[2022-05-14] MEDS: carvediloL 25 MG TABLET PO SCH ×2 (08:11→17:15)
[2022-05-14] MEDS: BISACODYL 5 MG TABLET PO SCH (08:12)
[2022-05-14] MEDS: LOSARTAN 50 MG TABLET PO SCH (08:13)
[2022-05-14] MEDS: minoxidiL 2.5 MG TABLET PO SCH (08:13)
[2022-05-14] MEDS: HEPARIN 5,000 UNIT/1 ML VIAL SUBCUT SCH ×2 (10:58→20:49)
[2022-05-15 06:17] LABS: Basophils # 0.1 10*3/uL (0.0-0.2); Eosinophils # 0.8 10*3/uL (0.0-0.87); Eosinophils % 14.9 % (0.00-10.9); Hematocrit 33.6 VOL% (42.0-52.0); Hemoglobin 11.1 GM/DL (14.0-18.0); Immature Granulocytes % 0.2 %; Immature Granulocytes Absolute 0.01 #; Lymphocytes # 1.7 10*3/uL (1.4-4.0); Lymphocytes % 32.1 % (21.2-54.2); Mean Corpuscular Volume 85.5 FL (87-102); Mean Platelet Volume 11.2 FL (9.6-12.0); Monocytes # 0.5 10*3/uL (0.11-0.8); Monocytes % 8.8 % (1.7-12.7); Platelet Count 190 T/CUMM (130-400); Red Blood Count 3.93 MC/CUMM (3.8-5.5); Red Cell Distribution Width 16.1 % (9.3-17.3); White Blood Count 5.2 T/CUMM (4-12)
[2022-05-15 06:35] LABS: Calcium 9.3 MG/DL (8.5-10.1)
[2022-05-15 06:41] LABS: Band Neutrophils 1 % (0-10); Eosinophils 17 % (0-10); Hypochromia 1+; Lymphocytes 41 % (20-55); Microcytosis 1+; Platelet Estimate Normal; Total Cells Counted 100
[2022-05-15] MEDS ORDERED: VANCOMYCIN INJ 750 MG in SODIUM CHLORIDE 0.9% 250 ML IV PRN (09:04)
[2022-05-15] MEDS ORDERED: GENTAMICIN INJ 80 MG/50 ML PREMIX IV PRN (09:05)
[2022-05-15] MEDS: HEPARIN 5,000 UNIT/1 ML VIAL SUBCUT SCH (10:29)
[2022-05-15] MEDS: BISACODYL 5 MG TABLET PO SCH (10:29)
[2022-05-15] MEDS: INSULIN LISPRO 100 UNIT/ML SUBCUT SCH ×3 (10:29→16:06)
[2022-05-15] MEDS: AMPICILLIN INJ 2,000 MG in SODIUM CHLORIDE 0.9% 100 ML IV SCH (10:31)
[2022-05-15] MEDS ORDERED: VANCOMYCIN INJ 2,000 MG in SODIUM CHLORIDE 0.9% 500 ML IV ONE (13:00)
[2022-05-15] MEDS ORDERED: GENTAMICIN INJ 80 MG/50 ML PREMIX IV ONE (13:00)
[2022-05-15] MEDS: carvediloL 25 MG TABLET PO SCH (13:18)
[2022-05-15] MEDS: minoxidiL 2.5 MG TABLET PO SCH (13:18)
[2022-05-15] MEDS: PANTOPRAZOLE 40 MG TABLET PO SCH (13:18)
[2022-05-15] MEDS: LOSARTAN 50 MG TABLET PO SCH (13:18)
[2022-05-15] MEDS: amLODIPine 10 MG TABLET PO SCH (13:19)
[2022-05-15 15:36] VITALS: BP 144/74
== END 2022-05-15 16:44 | disposition home or self-care (01) | DRG 698 ==
LOC: EDBD → EDUNIT# → N.ED 18:36 → SUATTDRO 23:27 → N.5E 23:27
PROVIDERS: ADMIT Internal Medicine; ATTEND Internal Medicine